=== PATIENT | male | born 2000 | race African-American/Black ===

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

== ENCOUNTER 2019-09-27 09:07 | Emergency (ER) | payer MEDICAID ==
--- NOTE | 2019-09-27 09:31 | ER Document Report ---
ED ENT - General Chief Complaint: Ear Pain Stated Complaint: SORE THROAT Time Seen by Provider: 09/27/19 09:13 Notes: CHIEF COMPLAINT: Right ear pain, mild sore throat HPI: 19-year-old male presenting with right ear pain for 2 to 3 days with a mild sore throat. Patient's girlfriend tested positive for strep this week. No fever. No cough. No shortness of breath. ROS: See HPI - all other systems were reviewed and are otherwise negative Constitutional: no fever Eyes: no drainage, no blurred vision ENT: no runny nose, positive sore throat, positive ear pain Cardiovascular: no chest pain Resp: no SOB, no cough GI: no vomiting, no diarrhea, no abdominal pain : no dysuria Integumentary: no rash Allergy: no hives Musculoskeletal: no extremity pain or swelling Neurological: no numbness/tingling, no weakness MEDICATIONS: I agree with the patient medications as charted by the RN. ALLERGIES: I agree with the allergies as charted by the RN. PAST MEDICAL HISTORY/PAST SURGICAL HISTORY: Reviewed and agree as charted by RN. SOCIAL HISTORY: Reviewed and agree as charted by RN. FAMILY HISTORY: No significant familial comorbid conditions directly related to patient complaint EXAM: Reviewed vital signs as charted by RN. CONSTITUTIONAL: Alert and oriented and responds appropriately to questions. Well-appearing; well-nourished HEAD: Normocephalic; atraumatic EYES: PERRL; Conjunctivae clear, sclerae non-icteric ENT: normal nose; no rhinorrhea; moist mucous membranes; pharynx with mild erythema without exudate, no uvula edema or deviation, no tonsillar hypertrophy, phonation normal. Bilateral tympanic membranes noted to have serous otitis NECK: Supple without meningismus; non-tender; no cervical lymphadenopathy, no masses CARD: RRR; no murmurs, no clicks, no rubs, no gallops; symmetric distal pulses RESP: Normal chest excursion without splinting or tachypnea; breath sounds clear and equal bilaterally; no wheezes, no rhonchi, no rales, pulse oximetry 99% on room air not hypoxic ABD/GI: Normal bowel sounds; non-distended; soft, non-tender, no rebound, no guarding; no palpable organomegaly or masses. BACK: The back appears normal and is non-tender to palpation, there is no CVA tenderness EXT: Normal ROM in all joints; no cyanosis, no effusions, no edema SKIN: Normal color for age and race; warm; dry; good turgor NEURO: Moves all extremities equally; Motor and sensory function intact PSYCH: The patient's mood and manner are appropriate. Grooming and personal hygiene are appropriate. MDM: 19-year-old male with sore throat with positive strep contact. Also with right ear pain. Appears to have a serous otitis. Will check a rapid strep TRAVEL OUTSIDE OF THE [place] IN LAST 30 DAYS: No - Related Data Allergies/Adverse Reactions: No Known Allergies Allergy (Verified 07/16/18 12:22) Past Medical History - Social History Smoking Status: Unknown if Ever Smoked Family History: Reviewed & Not Pertinent Renal/ Medical History: Denies: Hx Peritoneal Dialysis - Immunizations Immunizations up to date: Yes Hx Diphtheria, Pertussis, Tetanus Vaccination: No Physical Exam - Vital signs Vitals: Temp Pulse Resp BP Pulse Ox 98.1 F 87 17 125/75 99 09/27/19 09:11 09/27/19 09:11 09/27/19 09:11 09/27/19 09:11 09/27/19 09:11 Course - Re-evaluation Re-evalutation: 09/27/19 10:58 Rapid strep is negative but given his recent positive contacts will treat patient for pharyngitis - Vital Signs Vital signs: Temp Pulse Resp BP Pulse Ox 98.1 F 87 17 125/75 99 09/27/19 09:16 09/27/19 09:11 09/27/19 09:11 09/27/19 09:11 09/27/19 09:11 Discharge - Discharge Clinical Impression: Exposure to strep throat Pharyngitis, acute Qualifiers: Pharyngitis/tonsillitis etiology: unspecified etiology Qualified Code(s): J02.9 - Acute pharyngitis, unspecified Serous otitis media Qualifiers: Chronicity: acute Laterality: bilateral Recurrence: not specified as recurrent Qualified Code(s): H65.03 - Acute serous otitis media, bilateral Condition: Stable Disposition: HOME, SELF-CARE Instructions: Serous Otitis Media ([facility]) Additional Instructions: Your strep test today was negative but you have had a positive contact in the last week. You are being treated with amoxicillin for presumptive strep throat. You have a serous otitis which is usually viral or allergy, take the decongestants to treat this. Follow-up with a primary care provider for reevaluation of symptoms call for appointment Prescriptions: Fexofenadine/Pseudoephedrine [Iztel-D 24 Hour Tablet] 1 each PO QAM #10 tab.er.24h Amoxicillin 1 tab PO TID #30 tab Referrals: HARRY CASON MD [ACTIVE STAFF] - Follow up as needed
[2019-09-27 11:21] VITALS: BP 104/60
== END 2019-09-27 11:24 | disposition home or self-care (01) ==
LOC: ER 09:07
DX: J02.9 Acute pharyngitis, unspecified (principal); H65.03 Acute serous otitis media, bilateral; Z20.818 Contact with and (suspected) exposure to other bacterial communicable diseases
CPT/HCPCS: 87070; 87077; 87880; 99283

== ENCOUNTER → 2019-11-05 | Outpatient (CLI) | payer MEDICAID ==
[2019-11-05 15:00] LABS: CHLAM PCR NOT DETECTED (NOT DETECT)
== END ==
LOC: LAB 13:21
PROVIDERS: ATTEND Nurse Practitioner Family
DX: R30.0 Dysuria (principal)
CPT/HCPCS: 87491; 87591